=== PATIENT | male | born 1990 | race Caucasian/White ===

== ENCOUNTER → 2020-06-05 14:22 | Outpatient (BNVA) | payer MEDICARE, MEDICAID, SELFPAY | PROVIDERS: PCP Internal Medicine; Referring Provider Family Medicine; Visit Provider Internal Medicine Gastroenterology | DX: R10.13 Epigastric pain (principal); K76.0 Fatty (change of) liver, not elsewhere classified; Z86.19 Personal history of other infectious and parasitic diseases | CPT/HCPCS: Q3014 ==

== ENCOUNTER 2020-07-03 07:06 | Outpatient (REF) | payer MEDICARE, MEDICAID, SELFPAY ==
--- NOTE | 2020-07-03 07:09 | CT_ITS ---
EXAMINATION: CT ABDOMEN AND PELVIS WITHOUT CONTRAST CLINICAL INFORMATION: Fatty changes of the liver COMPARISON: Previous abdominal ultrasound most recent March 2020 TECHNIQUE: Multidetector volumetric imaging was performed from the superior aspect of the liver through the pubic symphysis. Sagittal and coronal reformatted images were obtained on the technologist's workstation. This CT examination was performed using dose optimization techniques as appropriate, variously including the following: *Automated exposure control *Adjustment of mA and/or kV according to patient size (this includes techniques or standardized protocols for targeted exams where dose is matched to indication/reason for exam; i.e. extremities or head) *Use of iterative reconstruction technique DLP: 884 mGy-cm FINDINGS: LUNG BASES: The visualized lung bases are unremarkable. LIVER, GALLBLADDER, AND BILIARY TREE: The liver is normal in size, shape, and attenuation. No focal hepatic lesion or biliary ductal dilatation is present. The gallbladder is unremarkable with no evidence of radiopaque gallstones, gallbladder wall thickening, or obvious pericholecystic inflammatory changes. PANCREAS: Unremarkable. SPLEEN: Unremarkable. ADRENAL GLANDS: Unremarkable. KIDNEYS AND URETERS: The kidneys are normal in size, shape, and attenuation. No hydronephrosis, hydroureter, or calculi seen. No perinephric stranding. BLADDER: Unremarkable. GASTROINTESTINAL TRACT: The small and large bowel are unremarkable. The appendix is unremarkable. ABDOMINAL WALL: There is an umbilical hernia containing fat. LYMPH NODES: Normal. VASCULAR: Unremarkable. PELVIC VISCERA: Unremarkable. OSSEOUS STRUCTURES: Unremarkable. CT/CT abdomen pelvis wo con IMPRESSION: Small umbilical hernia containing fat otherwise unremarkable exam.
[2020-07-03] MEDS: Barium Sulfate Oral (Vanilla) 450 ML ORAL.SUSP 900 ML PO (09:35)
== END 2020-07-03 07:07 | disposition home or self-care (01) ==
LOC: HO.CT 07:06
PROVIDERS: PCP Internal Medicine; Visit Provider Internal Medicine Gastroenterology
DX: R10.9 Unspecified abdominal pain (principal); K76.0 Fatty (change of) liver, not elsewhere classified
CPT/HCPCS: 74176

== ENCOUNTER → 2020-08-30 11:18 | Outpatient (BNVA) | payer MEDICARE, MEDICAID, SELFPAY | PROVIDERS: PCP Internal Medicine; Visit Provider Internal Medicine Gastroenterology | DX: Z13.89 Encounter for screening for other disorder (principal) | CPT/HCPCS: Q3014 ==

== ENCOUNTER 2020-10-17 07:59 | Day surgery (SDC) | payer MEDICARE, MEDICAID, SELFPAY ==
--- NOTE | 2020-10-16 09:36 | P.CONAN_ITS ---
Documented by User: Jen Diaz 10/16/20 09:37 HPI - Anesthesia Eval Consult details Narrative: 30yo M for Upper [facility] Active Problems Active Problems: All Active Problems (Updated 06/05/20 @ 15:13 by Marce Arita MD) Hx of esophagogastroduodenoscopy (Acute) Hepatic steatosis (Acute) Hyperlipidemia (Acute) History of Helicobacter pylori infection (Acute) Abdominal pain (Acute) Past Medical History Medical History History of Helicobacter pylori infection Hyperlipidemia Hypertension Family History Family History Father HTN (hypertension) Hypercholesterolemia Mother Arthritis Brother Asthma Sister Asthma Surgical History Surgical History Hx of esophagogastroduodenoscopy Social History Social History (Updated 08/30/20 @ 11:19 by SERENE Torres) Household Members: None Alcohol intake: current Alcohol intake frequency: does not drink Smoking Status: Never smoker Use of substances other than those prescribed or required for medical reasons: Yes Substance Use Type: Marijuana Advance Directives: No Advance Directives Information Provided: Yes Meds Allergies Allergy/AdvReac Type Severity Reaction Status Date / Time No Known Allergies Allergy Verified 08/30/20 11:18 Home Medications Medication Instructions Recorded Confirmed Last Taken Type lisinopril 10 mg tablet 10 mg PO DAILY 06/05/20 06/05/20 Unknown History omeprazole 40 mg capsule,delayed 40 mg PO DAILY 06/05/20 06/05/20 Unknown History release Exam Exam Date and Time: October 16, 2020 0936 Assessment and Plan Assessment Anesthesia Assessment: Chart Reviewed Documented by User: Garfield Santos 10/17/20 08:35 [facility] Past Medical History Medical History History of Helicobacter pylori infection Hyperlipidemia Hypertension Family History Family History Father HTN (hypertension) Hypercholesterolemia Mother Arthritis Brother Asthma Sister Asthma Surgical History Surgical History Hx of esophagogastroduodenoscopy Social History Social History (Updated 08/30/20 @ 11:19 by SERENE Torres) Household Members: None Alcohol intake: current Alcohol intake frequency: does not drink Smoking Status: Never smoker Use of substances other than those prescribed or required for medical reasons: Yes Substance Use Type: Marijuana Advance Directives: No Advance Directives Information Provided: Yes Meds Allergies Allergy/AdvReac Type Severity Reaction Status Date / Time No Known Allergies Allergy Verified 08/30/20 11:18 Home Medications Medication Instructions Recorded Confirmed Last Taken Type lisinopril 10 mg tablet 10 mg PO DAILY 06/05/20 06/05/20 Unknown History omeprazole 40 mg capsule,delayed 40 mg PO DAILY 06/05/20 06/05/20 Unknown History release Exam Airway Mallampati Class: III TM Dist: >3cm Neck ROM: Full Loose/Missing/Broken Teeth: No Heart: rrr+[id number] Lungs: cta b/l Assessment and Plan Assessment Anesthesia Assessment: Anesthesia Plan Discussed, PAT Visit and Chart Reviewed Final Anesthetic Review NPO: Yes ASA Class: II Final Preanesthetic Review: No Changes in Pt Med Stat, Meds/Allgs Chart Reviewed, Consent Obtained/Reviewed and Anes Risks/Benef Reviewed Patient Risk: Low Assessment/Block/Sedation in SS: Assess/Block/Sedation-SS Anesthetic Plan Anesthetic Plan: MAC: and Agree w/ Assess. and Plan Disposition: Standard PACU
[2020-10-17 08:19] VITALS: BP 132/87; PULSE 78; RESP 16; TEMP 36.6; O2SAT 97; BMI 50.8
[2020-10-17] MEDS: Lactated Ringers 1,000 ML 100 ML IVCONT (08:28)
--- NOTE | 2020-10-17 09:28 | MHC.SHP ---
Pre-Procedural Eval Section B Chief Complaint: reflux Details of Present Illness: Hx H. Pylori, Heartburn, crampy bloating Relevant Family History (Specify if Yes): No Relevant Social History: None Present Medications: see Short Stay Collaborative assessment Medical History: Significant History History of Previous Operations: Relevant previous surgery/procedure and date(s) (egd--H. Pylori gastritis) Allergies: Allergies Allergy/AdvReac Type Severity Reaction Status Date / Time No Known Allergies Allergy Verified 08/30/20 11:18 Review of Systems Sugical H&P ROS: Negative: Constitution and Respiratory and Yes, Specify: Cardiovascular (Hypertension) and Gastrointestinal Exam Surgical H&P Exam: Normal: HEENT, Normal: Heart, Normal: Lungs, Normal: Extremities, Normal: Abdomen and Normal: Skin Plan Diagnosis/Plan: Unchanged I have reviewed the history and physical and performed a pertinent physical examination on my patient. No changes have occurred unless specified.yes
--- NOTE | 2020-10-17 09:45 | PM.OP ---
Brief Operative Note Date of Service: 10/17/20 Pre-op diagnosis: Abdominal pain,GERD Post-op diagnosis: other (Esophagitis,GERD; Hiatal hernia, Superficial Gastritis) Procedure: EGD with bx Implants: NONE Surgeon: Marce Arita MD Anesthesia: MAC (Cuff, REVOLVING INVENTORY CLERK) Estimated blood loss (mL): 5 Pathology: other (Random gastric) Condition: stable Disposition: PACU
[2020-10-17 09:48] VITALS: BP 116/69; PULSE 91; RESP 16; TEMP 36.1; O2SAT 100
[2020-10-17 10:03] VITALS: BP 123/69; PULSE 78; RESP 16; TEMP 36.1; O2SAT 96
--- NOTE | 2020-10-17 15:47 | W.PM.OPN ---
Operative Note Operative Note Date of Service: 10/17/20 Narrative: Pre-op diagnosis: Abdominal pain,GERD (height: 5'9 weight-260) Post-op diagnosis: other (Esophagitis,GERD; Hiatal hernia, Superficial Gastritis) Procedure: EGD with bx Implants: NONE Surgeon: Marce Arita MD Anesthesia: MAC (Cuff, MGMT CONSULTANT) FINDINGS: Video endoscope advanced easily through the posterior pharynx(arytenoid cartilage-slight lipomatous) and in to the esophagus. Esophageal mucosa was normal til the distal 1 cm--present were linear and punctate erosions, primarily involving the GE junction. Small Hiatal hernia was noted. Mild erythema of fundus and antrum. Duodenal Bulb had mild erythema, second duodenum had normal villi. Biopsy of gastric mucosa was done. Scope withdrawn with no other concerns. Estimated blood loss (mL): 5 Pathology: other (Random gastric) Condition: stable Disposition: PACU PLAN: Patient will be seen in our office in followup. Further management changes will be made depending on persistence of symptoms and histology of the bx.
== END 2020-10-17 10:34 | disposition home or self-care (01) ==
PROVIDERS: PCP Internal Medicine; Visit Provider Internal Medicine Gastroenterology
PROC: 0DJ08ZZ Inspection of Upper Intestinal Tract, Via Natural or Artificial Opening Endoscopic (ICD-10-PCS; CPT 43235; principal; 2020-10-17 09:10)
DX: K21.00 Gastro-esophageal reflux disease with esophagitis, without bleeding (principal); K29.30 Chronic superficial gastritis without bleeding; K44.9 Diaphragmatic hernia without obstruction or gangrene; I10 Essential (primary) hypertension; Z79.899 Other long term (current) drug therapy; F12.90 Cannabis use, unspecified, uncomplicated
CPT/HCPCS: 43239; 88305; 88342

== ENCOUNTER → 2020-11-01 10:30 | Outpatient (BNVA) | payer MEDICARE, MEDICAID, SELFPAY | PROVIDERS: PCP Internal Medicine; Visit Provider Internal Medicine Gastroenterology | DX: R10.9 Unspecified abdominal pain (principal); E66.9 Obesity, unspecified; K21.9 Gastro-esophageal reflux disease without esophagitis; K59.00 Constipation, unspecified | CPT/HCPCS: Q3014 ==

== ENCOUNTER 2021-02-14 16:45 | Outpatient (REF) | payer MEDICARE, MEDICAID, SELFPAY ==
--- NOTE | ~2021-02-14 | XR_ITS ---
EXAMINATION: XR ANKLE, LEFT CLINICAL INFORMATION: Left ankle and foot pain. COMPARISON: None TECHNIQUE: AP, lateral, and mortise views of the left ankle. FINDINGS: No acute fracture or dislocation. Ankle mortise is maintained. Mild degenerative spurring at the dorsal midfoot. No osseous erosion. Tiny dorsal calcaneal enthesophyte. XR/XR ankle LT 2V IMPRESSION: Mild degenerative change at the dorsal midfoot. Tiny dorsal calcaneal spur.
[2021-02-14 17:36] LABS: MANUAL DIFF FLAG NO
[2021-02-14 17:42] LABS: Basophils Percent Auto 0.3 % (0-2); Eosinophils Absolute Auto 0.2 X10*3/uL (0.0-0.4); Eosinophils Percent Auto 2.2 % (0-4); Hematocrit 42.5 % (42-52); Hemoglobin 13.9 g/dl (14.0-18.0); Imm Gran Abs Auto 0.05 X10*3/uL (0.00-0.03); Imm Gran Pct Auto 0.5 % (0.0-0.4); Lymphocytes Absolute Auto 2.8 X10*3/uL (1.2-4.9); Lymphocytes Percent Auto 30.8 % (20-40); Mean Corpuscular HGB Conc 32.7 g/dl (31.0-36.0); Mean Corpuscular Hemoglobin 26.6 pg (27.0-33.0); Mean Corpuscular Volume 81.4 fL (80-98); Mean Platelet Volume 11.3 fL (9.4-12.4); Monocytes Absolute Auto 0.9 X10*3/uL (0.1-1.2); Monocytes Percent Auto 9.4 % (2-11); Neutrophils Absolute Auto 5.2 X10*3/uL (2.0-8.3); Neutrophils Percent Auto 56.8 % (45-73); Platelet Count 245 X10*3/uL (160-400); Red Blood Count 5.22 X10*6/uL (4.60-5.80); Red Cell Distribution Width 12.6 % (11.0-16.0); White Blood Count 9.2 X10*3/uL (4.8-10.8)
[2021-02-14 18:24] LABS: Erythrocyte Sedimentation Rate 32 MM/HR (0-15)
[2021-02-14 18:33] LABS: Anion Gap 15 (12-20); Blood Urea Nitrogen 12 mg/dL (9-16); C Reactive Protein 1.72 mg/dL (< or = 0.50); Calcium 9.5 mg/dL (8.4-10.2); Carbon Dioxide 23 mmol/L (22-29); Chloride 105 mmol/L (96-108); Estimated Glomerular Filt Rate > 60; Glucose Random 128 mg/dL (60-115); Potassium 4.3 mmol/L (3.3-5.1); Sodium 139 mmol/L (135-145)
[2021-02-14 18:55] LABS: Uric Acid 8.3 mg/dL (3.4-7.0)
== END 2021-02-14 16:46 | disposition home or self-care (01) ==
LOC: HO.XRAY 16:45
PROVIDERS: PCP Internal Medicine; Visit Provider Internal Medicine
DX: M25.572 Pain in left ankle and joints of left foot (principal)
CPT/HCPCS: 36415; 73600; 80048; 84550; 85025; 85652; 86140

== ENCOUNTER → 2021-05-15 10:04 | Outpatient (BNVA) | payer MEDICARE, MEDICAID, SELFPAY | PROVIDERS: PCP Internal Medicine; Visit Provider Nurse Practitioner Family | DX: K59.04 Chronic idiopathic constipation (principal); K21.9 Gastro-esophageal reflux disease without esophagitis; R10.84 Generalized abdominal pain | CPT/HCPCS: 99212 ==

== ENCOUNTER 2021-08-20 11:00 | Outpatient (RCR) | payer MEDICARE, MEDICAID, SELFPAY | END 2021-08-31 14:54 | disposition home or self-care (01) | LOC: HO.PTCHIC 11:00 | PROVIDERS: PCP Internal Medicine; Visit Provider Internal Medicine | DX: M21.40 Flat foot [pes planus] (acquired), unspecified foot (principal) | CPT/HCPCS: 97110; 97112; 97140; 97161 ==

== ENCOUNTER 2024-08-10 11:01 | Outpatient (REF) | payer MEDICARE, MEDICAID, SELFPAY ==
[2024-08-10 14:04] LABS: MANUAL DIFF FLAG NO
[2024-08-10 14:08] LABS: Basophils Percent Auto 0.4 % (0-2); Eosinophils Absolute Auto 0.1 X10*3/uL (0.0-0.4); Eosinophils Percent Auto 2.1 % (0-4); Hematocrit 43.9 % (42.0-52.0); Imm Gran Abs Auto 0.02 X10*3/uL (0.00-0.03); Imm Gran Pct Auto 0.3 % (0.0-0.4); Lymphocytes Absolute Auto 2.8 X10*3/uL (1.2-4.9); Lymphocytes Percent Auto 41.1 % (20-40); Mean Corpuscular HGB Conc 34.2 g/dl (31.0-36.0); Mean Corpuscular Hemoglobin 27.2 pg (27.0-33.0); Mean Corpuscular Volume 79.5 fL (80.0-98.0); Monocytes Absolute Auto 0.4 X10*3/uL (0.1-1.2); Monocytes Percent Auto 6.4 % (2-11); Neutrophils Absolute Auto 3.4 x10*3/uL (2.0-8.3); Neutrophils Percent Auto 49.7 % (45-73); Platelet Count 246 X10*3/uL (160-400); Red Blood Count 5.52 X10*6/uL (4.60-5.80); Red Cell Distribution Width 12.9 % (11.0-16.0); White Blood Count 6.7 X10*3/uL (4.8-10.8)
[2024-08-10 14:46] LABS: Alanine Aminotransferase 44 U/L (0-40); Albumin Level 4.4 g/dL (3.5-5.0); Alkaline Phosphatase 83 U/L (39-117); Anion Gap 9 (12-20); Aspartate Amino Transferase 28 U/L (5-37); Bilirubin Total 0.6 mg/dL (0.0-1.0); Blood Urea Nitrogen 11 mg/dL (9-16); Calcium 10.1 mg/dL (8.4-10.2); Carbon Dioxide 26 mmol/L (22-29); Chloride 106 mmol/L (96-108); Cholesterol 299 mg/dL (<200); Estimated Glomerular Filt Rate > 60; Glucose Random 139 mg/dL (60-115); HDL Cholesterol 45 mg/dL (>40); LDL Cholesterol Calculated 207 mg/dL (<100); Sodium 137 mmol/L (135-145); Total Protein 7.9 g/dL (6.5-8.0); Triglycerides 235 mg/dL (<150)
[2024-08-10 15:05] LABS: TSH reflex Free T4 0.78 uIU/mL (0.32-4.0)
== END 2024-08-10 11:02 | disposition home or self-care (01) ==
LOC: HO.CHCLDS 11:01
PROVIDERS: Visit Provider Internal Medicine
DX: E11.9 Type 2 diabetes mellitus without complications (principal); E66.812 Obesity, class 2; E66.01 Morbid (severe) obesity due to excess calories; Z68.35 Body mass index [BMI] 35.0-35.9, adult; I10 Essential (primary) hypertension
CPT/HCPCS: 36415; 80053; 80061; 84443; 85025

== ENCOUNTER 2025-05-02 09:52 | Outpatient (REF) | payer MEDICARE, MEDICAID, SELFPAY ==
--- OUTSIDE RECORDS SUMMARY | 2025-05-02 09:00 | XMS_ITS | Encounter Summary ---
Author Organization [employer] Address [address] [place] [address] Care Team Providers Care Shrink Pit Supervisor Name Role Phone Sal Thomson MD Primary Care Provider [phone] Reason for Visit * Reason Comments Diabetes Hypertension Encounter Details Date Type Department Care Team ([facility] Contact Info) Description 05/02/2025 9:00 AM EDT Office Visit [facility] MED & PEDS [address], [place] [phone] Sal Thomson MD [address] [place] [address] Primary hypertension (Primary Dx); Type 2 diabetes mellitus without complication, without long-term current use of insulin (HCC); Encounter for vaccination; Encounter for immunization Social History Tobacco Use Types Packs/Day Years Used Date Smoking Tobacco: Never Passive Smoke Exposure: Never Smokeless Tobacco: Current Alcohol Use Standard Drinks/Week Comments Never 0 (1 standard drink = 0.6 oz pur e alcohol) Alcohol Answer Date Recorded Q1: How often do you have a drink containing alc ohol? 2 09/21/2024 Q2: How many drinks containi ng alcohol do you have on a typical day when you are drinking? 0 09/21/2024 Q3: How often do you have six or more drinks on one occasion? 2 09/21/2024 Depression Answer Date Recorded Patient Health Questionnaire-9 Score 2 08/10/2024 Patient Health Questionnaire-9 Score 2 08/10/2024 Last PHQ-9: Questionnaire Data Not on file 0 08/10/2024 Housing Stability Answer Date Recorded What is your housing situation today? I have lyudmila alarcon 09/21/[address] you li ve. Do you have problems with any of the following? None of the above 09/21/2024 Food Insecurity Answer Date Recorded Within the past 12 months, y ou worried that your food would run out before you got money to buy more: Never True 09/21/2024 Within the past 12 months,th e food you bought just didn't last and you didn't have enough money to get more: Never True Transportation Answer Date Recorded In the past 12 months, has l ack of transportation kept you from medical appts, meetings, work or from getting things needed for daily living? No 09/21/2024 Utilities Answer Date Recorded In the past 12 months, has t he electric, gas, oil or water company threatened to shut off services in your home? No 09/21/2024 Depression Answer Date Recorded Patient Health Questionnaire-2 Score 1 08/10/2024 Internet Access Answer Date Recorded Internet Access Q1 Yes 09/21/2024 Internet Access Q2 Not on file 09/21/2024 Sex and Gender Information Value Date Recorded Sex Assigned at Male 05/27/2022 10:20 AM EDT Legal Sex Male 10:20 AM EDT Gender Identity Male 05/27/2022 10:20 AM EDT Sexual Orientation Choose not to disclose 2021 10:20 AM EDT documented as of this encounter Last Filed Vital Signs Vital Sign Reading Time Taken Comments Blood Pressure 149/98 05/02/2025 9:19 AM EDT Pulse 78 05/02/2025 9:19 AM EDT Temperature - - Respiratory Rate 20 05/02/2025 9:19 AM EDT Oxygen Saturation 98% 05/02/2025 9:19 AM EDT Inhaled Oxygen Concentration - - Weight 104 kg (229 lb) 05/02/2025 9:19 AM EDT Height 175 cm (5' 8.9 ) 05/02/2025 9:19 AM EDT Body Mass Index 33.92 05/02/2025 9:19 AM EDT documented in this encounter Plan of Treatment Upcoming Encounters Date Type Department Care Team ([facility] st Contact Info) Description 06/06/2025 9:00 AM EST Office Visit [facility] MED & PEDS [address] [place] [address] Sal Thomson MD [address] [place] [address] documented as of this encounter Visit Diagnoses Diagnosis Primary hypertension- Primary Unspecified essential hypertension Type 2 diabetes mellitus without complication, without long-term current use of insulin (HCC) Encounter for vaccination Encounter for immunization documented in this encounter Additional Health Concerns Assessment Noted Time PHQ-9 Depression Total Score: 2 08/10/19 25 11:10 AM EST documented as of this encounter Care Teams Shrink Pit Supervisor Relationship Specialty Start Date End Date Sal Thomson MD [address] [place] [address] PCP - General Internal Medicine 08/04/13 documented as of this encounter
--- OUTSIDE RECORDS SUMMARY | 2025-05-02 11:19 | XMS_ITS | Encounter Summary ---
Author Organization [employer] Address [address] [place] [address] Care Team Providers Care Shank Paperer Name Role Phone Sal Thomson MD Primary Care Provider [phone] Reason for Visit * Reason Comments Med Change Request Encounter Details Date Type Department Care Team ([facility] st Contact Info) Description 03/22/2024 Refill [facility] MED & PEDS [address] [place], [place] [phone] Sal Thomson MD [address] [place] [address] Type 2 diabetes mellitus without complication, without long-term current use of insulin (CMS/[facility]); Class 2 severe obesity due to excess calories with serious comorbidity and body mass index (BMI) of 35.0 to 35.9 in adult (CMS/HCC) Social History Tobacco Use Types Packs/Day Years Used Date Smoking Tobacco: Never Passive Smoke Exposure: Never Smokeless Tobacco: Current Alcohol Use Standard Drinks/Week Comments Never 0 (1 standard drink = 0.6 oz pur e alcohol) Depression Answer Date Recorded Patient Health Questionnaire-9 Score 0 09/04/2022 Housing Stability Answer Date Recorded What is your housing situation today? I have lyudmiladat alarcon 05/12/[address] you li ve. Do you have problems with any of the following? None of the above 05/12/2023 Food Insecurity Answer Date Recorded Within the past 12 months, y ou worried that your food would run out before you got money to buy more: Never True 05/12/2023 Within the past 12 months,th e food you bought just didn't last and you didn't have enough money to get more: Never True Transportation Answer Date Recorded In the past 12 months, has l ack of transportation kept you from medical appts, meetings, work or from getting things needed for daily living? No 05/12/2023 Utilities Answer Date Recorded In the past 12 months, has t he electric, gas, oil or water company threatened to shut off services in your home? No 05/12/2023 Depression Answer Date Recorded Patient Health Questionnaire-2 Score 0 09/04/2022 Sex and Gender Information Value Date Recorded Sex Assigned at Male 05/27/2022 10:20 AM EDT Legal Sex Male 10:20 AM EDT Gender Identity Male 05/27/2022 10:20 AM EDT Sexual Orientation Choose not to disclose 2021 10:20 AM EDT documented as of this encounter Plan of Treatment Upcoming Encounters Date Type Department Care Team ([facility] st Contact Info) Description 06/06/2025 9:00 AM EST Office Visit [facility] MED & PEDS [address] [place] [address] Sal Thomson MD [address] [place] [address] documented as of this encounter Visit Diagnoses Diagnosis Type 2 diabetes mellitus without complication, without long-term current use of insulin (HCC) Class 2 severe obesity due to excess calories with serious comorbidity and body mass index (BMI) of 35.0 to 35.9 in adult documented in this encounter Additional Health Concerns Assessment Noted Time PHQ-9 Depression Total Score: 0 09/04/19 23 11:00 AM EST documented as of this encounter Care Teams Shank Paperer Relationship Specialty Start Date End Date Sal Thomson MD [address] [place] [address] PCP - General Internal Medicine 08/04/13 documented as of this encounter
--- OUTSIDE RECORDS SUMMARY | 2025-05-02 11:19 | XMS_ITS | Encounter Summary ---
Author Organization [employer] Address [address] [facility] [address] [place] [address] Care Team Providers Care Medical Front Desk Specialist Name Role Phone Sal Thomson MD Primary Care Provider [phone] Encounter Details Date Type Department Care Team (Latest Contact Info) Description 05/02/2025 Travel Social History Tobacco Use Types Packs/Day Years [...] Upcoming Encounters Date Type Department Care Team ([facility] st Contact Info) Description 06/06/2025 9:00 AM EST Office Visit [facility] MED & PEDS [address] [place] [address] Sal Thomson MD [address] [place] [address] documented as of this encounter Visit Diagnoses Not on filedocumented in this encounter Additional Health Concerns Assessment Noted Time PHQ-9 Depression Total Score: 2 08/10/19 11:10 AM EST documented as of this encounter Care Teams Medical Front Desk Specialist Relationship Specialty Start Date End Date Sal Thomson MD [address] [place] [address] PCP - General Internal Medicine 08/04/13 documented as of this encounter
--- OUTSIDE RECORDS SUMMARY | 2025-05-02 11:19 | XMS_ITS | Encounter Summary ---
Author Organization [employer] Address [address] [place] [address] Care Team Providers Care Fiscal Manager Name Role Phone Sal Thomson MD Primary Care Provider [phone] Reason for Visit * Reason Comments Med Refill Encounter Details Date Type Department Care Team ([facility] Contact Info) Description 02/02/2023 Refill [facility] MED & PEDS [address] [place] [address] Sal Thomson MD [address] [place] [address] Social History Tobacco Use Types Packs/Day Years Used Date Smoking Tobacco: Never Passive Smoke Exposure: Never Smokeless Tobacco: Current Alcohol Use Standard Drinks/Week Comments Never 0 (1 standard drink = 0.6 oz pur e alcohol) Depression Answer Date Recorded Patient Health Questionnaire-9 Score 0 09/04/2022 Depression Answer Date Recorded Patient Health Questionnaire-2 Score 0 09/04/2022 Sex and Gender Information Value Date Recorded Sex Assigned at Male 05/27/2022 10:20 AM EDT Legal Sex Male 10:20 AM EDT Gender Identity Male 05/27/2022 10:20 AM EDT Sexual Orientation Choose not to disclose 2021 10:20 AM EDT documented as of this encounter Plan of Treatment Upcoming Encounters Date Type Department Care Team ([facility] Contact Info) Description 06/06/2025 9:00 AM EST Office Visit [facility] MED & PEDS [address] [place] [address] Sal Thomson MD [address] [place] [address] documented as of this encounter Visit Diagnoses Not on filedocumented in this encounter Additional Health Concerns Assessment Noted Time PHQ-9 Depression Total Score: 0 09/04/19 23 11:00 AM EST documented as of this encounter Care Teams Fiscal Manager Relationship Specialty Start Date End Date Sal Thomson MD [address] [place] [address] PCP - General Internal Medicine 08/04/13 documented as of this encounter
--- OUTSIDE RECORDS SUMMARY | 2025-05-02 11:19 | XMS_ITS | Clinical Summary ---
Author Organization [employer] Address [address] [place] [address] Care Team Providers Care Tongsman Name Role Phone Sal Thomson MD Primary Care Provider Allergies No known active allergies Medications colchicine 0.6 MG tablet Take 1 tablet by mouth every 12 (twelve) hours. 1 Active Diclofenac Sodium (Voltaren) 1 % gel Apply topically every 8 (eight) hours. 2 Active simvastatin (Zocor) 20 MG tablet Take 1 tablet by mouth. 1 Active SUMAtriptan (Imitrex) 25 MG tablet PLEASE SEE ATTACHED FOR DETAILED DIRECTIONS 2 Active ondansetron (Zofran) 4 MG tablet TAKE 1 TABLET BY MOUTH EVERY 8 HOURS NEEDED FOR NAUSEA AND VOMITING 3 Active Semaglutide-Weigh t Management (Wegovy) 1 MG/0.5ML solution auto-injectorIndi cations:Type 2 diabetes mellitus without complication, without long-term current use of insulin (HCC),Class 2 severe obesity due to excess calories with serious comorbidity and body mass index (BMI) of 35.0 to 35.9 in adult 1 mg s/q once a week. 1 mL 2 4 Active metFORMIN (Glucophage) 500 MG tablet Take 1 tablet (500 mg) by mouth every 12 (twelve) hours. 180 tablet 1 4 Active amLODIPine (Norvasc) 10 MG tablet Take 1 tablet (10 mg) by mouth in the morning. 90 tablet 3 5 Active semaglutide (Ozempic) 4 MG/3ML solution pen-injectorIndic ations:Type 2 diabetes mellitus without complication, without long-term current use of insulin (HCC) Inject 1 mg under the skin 1 (one) time per week. 1 each 5 Active lisinopril 40 MG tabletIndications :Primary hypertension Take 1 tablet (40 mg) by mouth Once per day. 30 tablet 11 5 11/24/19 26 Active Active Problems Problem Noted Date Diagnosed Date Elevated bilirubin 10/31/2022 Assessment & Plan (10/31/2022 1:02 PM EDT): Could be secondary to his gastroenteritis, will recheck levels and f/up results Acute drug-induced gout of left foot 09/04/2022 Helicobacter pylori gastrointestinal tract infec tion 09/04/2022 Type 2 diabetes mellitus 09/04/2022 Assessment & Plan (10/31/2022 1:02 PM EDT): Uncontrolled. Will add GLP-1 agonist to his regimen. F/u in 8 weeks with PCP, will be placed on recall Acute COVID-19 07/31/2021 Obesity 05/28/2017 Hypertensive disorder 08/18/2015 Encounters Date Type Department Care Team Description 05/02/2025 9:00 AM EDT Office Visit [facility] [address] [place] [address] Sal Thomson MD Primary hypertension (Primary Dx); Type 2 diabetes mellitus without complication, without long-term current use of insulin (HCC); Encounter for vaccination; Encounter for immunization 05/02/2025 Travel 04/25/2025 Travel 04/19/2025 Orders Only [facility] [address] [place] [address] Sal Thomson MD 04/18/2025 Telephone [facility] [address] [place], [place] [phone] Sal Thomson MD Med Refill 02/08/2025 Telephone [facility] [address] [place] [address] Sal Thomson MD recall appt from Last 3 Months Immunizations Immunization Administration Dates Next Due DTaP / IPV 01/24/1999, 9,07/27/1998,1992,02/24/1990 DTaP, 5 pertussis antigens 01/24/1999,,07/27/1998,1992,02/24/1990 Hep B, Adolescent or Pediatric 04/14/2000,1999,01/17/1999 HiB, unspecified 01/22/2000 Hib (HbOC) 02/24/1990 IPV 09/24/1998, 8,11/24/1992,1989 Influenza injectable quadriv alent IIV4 with preservative 05/06/2019,05/28/2017,04/13/2015 Influenza, Split (incl. cindy fied surface antigen) 04/30/2012 Influenza, seasonal, injecta ble, preservative free 08/10/2024 MMR 01/22/2000,02/24/1990 Pfizer Covid-19 Vaccine 12+ 08/10/2024 Pneumococcal Conjugate PCV 20 08/10/2024 TD (adult), 2 Lf tetanus tox oid, preservative free, adsorbed 01/22/2000 Tdap 04/13/2015 Varicella 04/14/2000 Family History Medical History Relation Name Comments Diabetes type II Father Hypertension Father Arthritis Mother No Known Problems Paternal Grandfather Relation Name Status Comments Father Mother Paternal Grandfather Social History Tobacco Use Types Packs/Day Years Used Date Smoking Tobacco: Never Passive Smoke Exposure: Never Smokeless Tobacco: Current Tobacco Cessation:Ready to Q uit: Not Asked; Counseling Given: Not Answered Alcohol Use Standard Drinks/Week Comments Never 0 [...] not to disclose 2021 10:20 AM EDT Last Filed Vital Signs Vital Sign Reading Time Taken Comments Blood Pressure 149/98 05/02/2025 9:19 AM EDT Pulse 78 05/02/2025 9:19 AM EDT Temperature 36.8 C (98.2 F) 11/23/2024 9:59 AM EDT Respiratory Rate 20 05/02/2025 9:19 AM EDT Oxygen Saturation 98% 05/02/2025 9:19 AM EDT Inhaled Oxygen Concentration - - Weight 104 kg (229 lb) 05/02/2025 9:19 AM EDT Height 175 cm (5' 8.9 ) 05/02/2025 9:19 AM EDT Body Mass Index 33.92 05/02/2025 9:19 AM EDT Plan of Treatment Upcoming Encounters Date Type Department Care Team (Late st Contact Info) Description 06/06/2025 9:00 AM EST Office Visit [facility] [address] [place] [address] Sal Thomson MD [address] [place] [address] Health Maintenance Due Date Last Done Comments HIV Screening 1988 Eye Exam 1998 Family Planning (PISQ) 2003 HPV Vaccines (1 - Male 3-dose series) 2003 Hepatitis C Screening 2006 Diabetes: Urine Protein Screening 2007 Diabetes: Hemoglobin A1C 11/08/2024 025, 03/22/2024, 09/04/2023, Additional history exists Influenza Vaccine (#1) 2025 , 05/06/2019, 05/28/2017, Additional history exists DTaP/Tdap/Td Vaccines (11 - Td or Tdap) 04/13/2025 04/13/2015, 01/22/2000, 01/24/1999, Additional history exists Disability Screening 08/09/2025 08/09/2024 Depression Screening 08/10/2025 08/10/2024, 08/10/19 Lipid Panel 08/10/2025 08/10/2024 Alcohol/Substance Use Screening 09/21/2025 09/21/2024 Diabetes: Foot Exam 09/21/2025 09/21/2024, 11/28/2022, 11/28/2022, Additional history exists SDOH Screening 09/21/2025 09/21/2024 Tobacco Screening 05/02/2026 05/02/2025 Zoster Vaccines (1 of 2) 2038 RSV Patients and Patients Aged 60 years or older (1 - 1-dose 75+ series) 2063 IPV Vaccines Completed 01/24/1999, 08/29, 09/24/1998, Additional history exists HIB Vaccines Completed 01/22/2000, 02/24/1990 Hepatitis B Vaccines Completed 04/14/2000, 01/22/2000, 01/17/1999 COVID-19 Vaccine Completed 08/10/2024 Pneumococcal Vaccine: Pediatrics (0 to 5 Years) and At-Risk Patients (6 to 49) Years Completed 08/10/2024 Hepatitis A Vaccines Aged Out No long er eligible based on patient's age to complete this topic Meningococcal B Vaccine Aged Out No l onger eligible based on patient's age to complete this topic Meningococcal Vaccine Aged Out No ashish franky eligible based on patient's age to complete this topic RSV under 20 months Aged Out No longe r eligible based on patient's age to complete this topic Rotavirus Vaccines Aged Out No longer eligible based on patient's age to complete this topic Procedures Procedure Name Priority Date/Time Associated Diagnosis Comments POCT GLYCATED HEMOGLOBIN, TOTAL Routine 08/10/2024 11:12 AM EST Type 2 diabetes mellitus without complication, without long-term current use of insulin ([facility]) LIPID PANEL, STANDARD Routine 08/10/2024 11:04 AM EST Type 2 diabetes mellitus without complication, without long-term current use of insulin ([facility]) Class 2 severe obesity due to excess calories with serious comorbidity and body mass index (BMI) of 35.0 to 35.9 in adult ([facility]) Primary hypertension Type 2 diabetes mellitus without complication, without long-term current use of insulin ([facility]) from Last 3 Months or Most Recently Relevant to Health Maintenance Results * (ABNORMAL) POCT HGB A1C (08/10/2024 11:12 AM EST) Pathologist [facility] Hemoglobin A1C 7.3(A) 4.0 - 6.0 % QC Media Lot # [id number] Lot# Expiration Date [id number] Blood 08/10/2024 11:1 2 AM EST us Sal Thomson MD POINT OF CARE TEST ENTER/ED IT ORDERABLES Final Result * (ABNORMAL) Lipid Panel, Standard (08/10/2024 11:04 AM EST) Triglycerides 235(H) <150 mg/dL [facility] Comment:Desirable Triglyceri de: less than 150 mg/dLBorderline High Triglyceride 150-199 mg/dLHigh Triglyceride: 200-499 mg/dLVery High Triglyceride: greater than or equal to 5OO mg/dL Cholesterol 299(H) <200 mg/dL [facility] Comment:Desirable Cholestero l: less than 200 mg/dLBorderline High Cholesterol: 200-239 mg/dLHigh Cholesterol: greater than 239 mg/dL LDL Cholesterol Calculated 207(H) <100 mg/dL [facility] Comment:Desirable LDL: less than 100 mg/dLNear Optimal/Above Optimal LDL: 110- 129 mg/dLBorderline High LDL: 130-159 mg/dLHigh LDL: 160-189 mg/dLVery High LDL: greater than or equal to 190 mg/dL HDL Cholesterol 45 >40 mg/dL [facility] Comment:Desirable HDL: great er than 40 mg/dL Note: This HDL assay may give artificially low results in patients with liver disease. Blood Venous blood specimen / Unknown 08/10/2024 11:04 AM EST 08/10/2024 1:57 PM EST Sal Thomson MD LAB BLOOD ORDERABLES Final Result [facility] [address] [place] [address] [phone] from Last 3 Months or Most Recently Relevant to Health Maintenance Insurance [facility] STANDARD MEDICARE Care Teams Tongsman Relationship Specialty Start Date End Date Sal Thomson MD [address] [place] [phone] PCP - General Internal Medicine 08/04/13
--- OUTSIDE RECORDS SUMMARY | 2025-05-02 11:19 | XMS_ITS | Encounter Summary ---
Author Organization [employer] Address [address] [place] [address] Care Team Providers Care Sales Support Administrator Name Role Phone Sal Thomson MD Primary Care Provider [phone]- [phone] Reason for Visit * Reason Comments Med Refill Encounter Details Date Type Department Care Team ([facility] Contact Info) Description 04/26/2023 Refill [facility] [address] [place] [address] Sal Thomson MD [address] [place] [address] Social History Tobacco Use Types Packs/Day Years [...] Upcoming Encounters Date Type Department Care Team ([facility] Contact Info) Description 06/06/2025 9:00 AM EST Office Visit [facility] [address] [place] [address] Sal Thomson MD [address] [place] [address] documented as of this encounter Visit Diagnoses Not on filedocumented in this encounter Additional Health Concerns Assessment Noted Time PHQ-9 Depression Total Score: 0 09/04/19 23 11:00 AM EST documented as of this encounter Care Teams Sales Support Administrator Relationship Specialty Start Date End Date Sal Thomson MD [address] [place] [address] PCP - General Internal Medicine 08/04/13 documented as of this encounter
--- OUTSIDE RECORDS SUMMARY | 2025-05-02 11:19 | XMS_ITS | Encounter Summary ---
Author Organization [employer] Address [address] [place] [address] [place] [address] Care Team Providers Care Statistical Reporting Analyst Name Role Phone Sal Thomson MD Primary Care Provider [phone]- [phone] Encounter Details Date Type Department Care Team ([facility] st Contact Info) Description 04/19/2025 Orders Only [facility] [address] [place], [place] [phone] Sal Thomson MD [address] [place] [address] Social History Tobacco Use Types Packs/Day Years [...] Description 06/06/2025 9:00 AM EST Office Visit [facility] [address] [place] [address] Sal Thomson MD [address] [place] [address] documented as of this encounter Visit Diagnoses Not on filedocumented in this encounter Additional Health Concerns Assessment Noted Time PHQ-9 Depression Total Score: 2 08/10/19 11:10 AM EST documented as of this encounter Care Teams Statistical Reporting Analyst Relationship Specialty Start Date End Date Sal Thomson MD [address] [place] [address] PCP - General Internal Medicine 08/04/13 documented as of this encounter
--- OUTSIDE RECORDS SUMMARY | 2025-05-02 11:19 | XMS_ITS | Encounter Summary ---
Author Organization [employer] Address [address] [address] Care Team Providers Care Homicide Detective Name Role Phone Sal Thomson MD Primary Care Provider [phone]- [phone] Reason for Visit * Reason Onset Date Comments .. 10/19/2024 Encounter Details Date Type Department Care Team ([facility] st Contact Info) Description 10/19/2024 Telephone [facility] [address] [place] [address] Sal Thomson MD [address] [place] [phone] .. Social History Tobacco Use Types Packs/Day Years [...] the past 12 months, has t he [employer], gas, oil or water company threatened to [...] AM EDT documented as of this encounter Miscellaneous Notes * Telephone Encounter - Dipti Loera - 10/19/2024 1:47 PM EDT Tc from pt stating received a call 2x from [facility], sql report writer verified but no notes on chart. documented in this encounter Plan of Treatment Upcoming Encounters Date Type Department Care Team ([facility] st Contact Info) Description 06/06/2025 9:00 AM EST Office Visit [facility] [address] [place] [address] Sal Thomson MD [address] [place] [address] documented as of this encounter Visit Diagnoses Not on filedocumented in this encounter Additional Health Concerns Assessment Noted Time PHQ-9 Depression Total Score: 2 08/10/19 11:10 AM EST documented as of this encounter Care Teams Homicide Detective Relationship Specialty Start Date End Date Sal Thomson MD [address] [place] [phone] PCP - General Internal Medicine 08/04/13 documented as of this encounter
[2025-05-02 15:29] LABS: Microalbum/Creatinine Ratio Ur 5.6 ug/mg cr (<30)
[2025-05-03 07:59] LABS: ~HepC Num1 0.09 S/CO (0.00-0.79); ~Hepatitis C Antibody Nonreactive (Nonreactive)
== END 2025-05-02 09:53 | disposition home or self-care (01) ==
LOC: HO.CHCLDS 09:52
PROVIDERS: Visit Provider Internal Medicine
DX: Z11.59 Encounter for screening for other viral diseases (principal); E11.9 Type 2 diabetes mellitus without complications
CPT/HCPCS: 36415; 82043; 82570; 86803

== ENCOUNTER 2025-07-04 09:50 | Outpatient (REF) | payer MEDICARE, MEDICAID, SELFPAY ==
[2025-07-04 15:12] LABS: Anion Gap 13 (12-20); Blood Urea Nitrogen 12 mg/dL (9-16); Calcium 9.3 mg/dL (8.4-10.2); Carbon Dioxide 25 mmol/L (22-29); Chloride 105 mmol/L (96-108); Estimated Glomerular Filt Rate > 60; Potassium 4.4 mmol/L (3.3-5.1); Sodium 139 mmol/L (135-145); Uric Acid 8.1 mg/dL (3.4-7.0)
== END 2025-07-04 09:51 | disposition home or self-care (01) ==
LOC: HO.CHCLDS 09:50
PROVIDERS: Visit Provider Internal Medicine
DX: I10 Essential (primary) hypertension (principal); M1A.40X0 Other secondary chronic gout, unspecified site, without tophus (tophi)
CPT/HCPCS: 36415; 80048; 84550